=== PATIENT | male | born 1955 | race Caucasian/White ===

== ENCOUNTER 2018-09-23 14:10 | Inpatient (IN) ==
[2018-09-23] MEDS ORDERED: ASPIRIN PO ONE (14:55)
[2018-09-23 15:12] LABS: BASO# 0.01 X1000 (0.0-0.2); BASO% 0.2 % (0.0-0.8); EOS# 0.02 X1000 (0.0-0.7); EOS% 0.3 % (0.0-10.0); HEMATOCRIT 41.1 % (42.0-52.0); HEMOGLOBIN 13.6 g/dL (14.0-18.0); IMM GRAN# 0.02 X1000 (0.0-0.04); IMM GRAN% 0.3 % (0.0-0.5); LYMPH# 1.43 X1000 (1.2-3.4); LYMPH% 23.7 % (20.5-51.1); MCH 29.6 PG (27-31); MCHC 33.1 g/dL (33-37); MCV 89.5 FL (81-99); MONO# 0.51 X1000 (0.11-0.59); MONO% 8.5 % (1.7-9.3); MPV 9.3 FL (7.4-10.4); NEUT# 4.04 X1000 (1.4-6.5); PLT 318 X1000 (130-400); RBC 4.59 XMIL (4.7-6.1); RDW 13.1 % (11.5-14.5); WBC 6.03 X1000 (4.8-10.8)
--- NOTE | 2018-09-23 15:21 | Diag Imaging Result Doc PS360 ---
EXAM: CHEST-2 VIEWS HISTORY: SOB TECHNIQUE: Chest two views COMPARISON: None. FINDINGS: Poor inspiratory effort. The heart is not enlarged. The vessels are not distended. There are no infiltrates. No pleural effusions. Calcified subcarinal lymph node. IMPRESSION: No acute abnormality. Electronically signed by Dangelo Melo 09/23/2018 3:19 PM
[2018-09-23 15:27] LABS: INR 0.96; PROTIME 13.6 Seconds (11.0-16.0); PTT 29.9 Seconds (22.3-41.8)
[2018-09-23 15:32] LABS: ALBUMIN 4.4 g/dL (3.5-5.0); CALCIUM 9.8 mg/dL (8.8-10.2); CREATININE 1.4 mg/dL (0.7-1.2); POTASSIUM 4.8 mmol/L (3.5-5.1); TOTAL BILIRUBIN 0.43 mg/dL (0.20-1.00); TOTAL PROTEIN 6.6 g/dL (6.3-8.3)
--- NOTE | 2018-09-23 15:39 | EKG Report ---
Test Performed on : 09/23/2018 2:17:02 PM Test Reason : dizziness Blood Pressure : / mmHG Vent. Rate : 074 BPM Atrial Rate : 074 BPM P-R Int : 140 ms QRS Dur : 086 ms QT Int : 362 ms P-R-T Axes : 032 -06 005 degrees QTc Int : 401 ms Normal sinus rhythm. Normal ECG When compared with ECG of 10-SEP-2018 15:21, Questionable change in QRS axis Unconfirmed Result
[2018-09-23] MEDS ORDERED: SODIUM CHLORIDE 0.9% INJ SCH (21:00)
--- NOTE | 2018-09-23 21:15 | HISTORY AND PHYSICAL ---
CHIEF COMPLAINT: Dizzy spell, recurrent shortness of breath 3 times this morning while he was at work. 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 Recently had lithotripsy for kidney stones by Dr. Gaffney. Came to the ER with the above symptoms. Family history of heart disease. He has shortness of breath on exertion. No swelling of feet. Initial workup, chest x-ray, EKG, cardiac enzymes were negative. He also has near syncope spells. Basically, admitted in telemetry, rule out VA, rule out pulmonary embolism, rule out carotid disease. Currently denies any focal symptoms. PAST MEDICAL HISTORY: Reported hypertension, kidney stones, hyperlipidemia, IBS with diarrhea. PAST SURGICAL HISTORY: Reported colonoscopy by Dr. Lr, lithotripsy recently. MEDICATIONS: 1. Viberzi 75 mg daily. 2. Lisinopril 10 daily. 3. Livalo 2 mg daily. 4. Flomax 0.4 daily. ALLERGIES: Not known. SOCIAL HISTORY: for 44 years. Lives in [place]. One child. Dips tobacco. No alcohol. FAMILY HISTORY: Mom is alive with open-heart surgery. Father had heart disease with stents. REVIEW OF SYSTEMS: HEENT: No headache, no vision problem, no earache, no sore throat. Neck: No goiter. No lymphadenopathy. No bruit. Cardiopulmonary: No chest pain. Basically shortness of breath. No PND. No orthopnea. No swelling of feet. GI: No nausea, vomiting, abdominal pain, bleeding per rectum. : No history of hesitancy, frequency, dysuria. Recently had kidney stones busted by lithotripsy. Neurologic: No neurological symptoms or weakness. PHYSICAL EXAMINATION: VITAL SIGNS: Temperature is 98 degrees, pulse 69, blood pressure 140/79, 5 feet 9 inches, 188 pounds. HEENT: Atraumatic, normocephalic. Pupils equal, react to light. TMs are normal. Nose and throat within normal limits. NECK: Supple. No lymphadenopathy. No goiter. CHEST: Bilateral air entry. HEART: Sounds are regular. No murmur. ABDOMEN: Belly is soft, nontender. Good bowel sounds. RECTAL: Deferred. EXTREMITIES: No peripheral edema or cyanosis. NEUROLOGIC: No obvious neurological deficits. INVESTIGATIONS: CBC: White cell count 6, hematocrit 41, platelets 318,000. PT/INR is normal. SMA 7: Sodium 142, potassium 4.8, BUN 19, creatinine 1.4. Baseline is 1.1. LFTs and cardiac enzymes were negative. ProBNP is normal. Chest x-ray: No acute abnormality. EKG: Normal sinus, nothing acute. ASSESSMENT AND PLAN: A 63-year-old white male admitted to the hospital with a dizzy, near-syncope spell. 1. Exertional shortness of breath, recent lithotripsy. Plan is rule out myocardial infarction, rule out carotid disease, rule out pulmonary embolus. Plan is check the arterial blood gases and D-dimer. Will place in telemetry. Rule out cardiac arrhythmias. 2. Family history of heart disease. Previous cardiac workup was negative. 3. Reconcile home medicines. 4. Slight dehydration. Will give intravenous fluids 1 L and follow up on SMA 7. 5. Deep venous thrombosis and gastrointestinal prophylaxis with Lovenox and Pepcid respectively. 6. Discussed the plan of care with and patient at bedside, and Dr. Fisher is going to follow up. cc: Russell Brice MD [facility]
[2018-09-23] MEDS: NS 1,000 ML IV SCH (22:11)
[2018-09-23] MEDS: PEPCID IV SCH (22:11)
[2018-09-23] MEDS: LOVENOX SUBQ SCH (22:11)
[2018-09-24 05:29] LABS: ALLEN TEST YES; BE -0.2 mmoll (-3.0-3.0); BLOOD TYPE ARTERIAL; HCO3-(ACT) 24.6 mmoll (20.0-26.0); O2(CT) 15.1 mL/dL (15.0-23.0); PCO2(98.6) 37 mmHg (35-45); PO2(98.6) 50 mmHg (60-100); SAMPLE BLOOD; SAO2 91.7 % (95.0-100.0); THB 12.2 g/dL (11.5-17.4); pH(98.6) 7.42 (7.35-7.45)
[2018-09-24 05:31] LABS: O2HB 88.2 % (95.0-99.0)
[2018-09-24 05:32] LABS: MODALITY ROOM AIR
--- NOTE | 2018-09-24 07:26 | EKG Report ---
Test Performed on : 09/24/2018 07:08:24 AM Test Reason : cp Blood Pressure : / mmHG Vent. Rate : 048 BPM Atrial Rate : 048 BPM P-R Int : 146 ms QRS Dur : 086 ms QT Int : 430 ms P-R-T Axes : 030 -01 035 degrees QTc Int : 384 ms Sinus bradycardia. Otherwise normal ECG When compared with ECG of 23-SEP-2018 14:17, (Unconfirmed) Vent. rate has decreased BY 26 BPM T wave inversion no longer evident in Inferior leads Confirmed by Natan DAVIS, Phillip Gonzales ([id number]) on 09/24/2018 5:09:49 PM
[2018-09-24 07:51] LABS: HEMATOCRIT 37.3 % (42.0-52.0); HEMOGLOBIN 12.1 g/dL (14.0-18.0); MCH 29.7 PG (27-31); MCHC 32.4 g/dL (33-37); MCV 91.6 FL (81-99); MPV 9.2 FL (7.4-10.4); RBC 4.07 XMIL (4.7-6.1); RDW 13.1 % (11.5-14.5); WBC 4.79 X1000 (4.8-10.8)
[2018-09-24 08:31] LABS: AGAP 9; BUN 17 mg/dL (8-22); CHLORIDE 108 mmol/L (98-107); COSMO 286; CREATININE 1.2 mg/dL (0.7-1.2); ESTIMATED GFR > 60; GLUCOSE 95 mg/dL (70-104); POTASSIUM 4.2 mmol/L (3.5-5.1); SODIUM 143 mmol/L (136-145); TCO2 26 mmol/L (25-35)
[2018-09-24 08:32] LABS: CALCIUM 9.2 mg/dL (8.8-10.2); MAGNESIUM 2.1 mg/dL (1.5-2.7)
[2018-09-24] MEDS: PEPCID IV SCH (08:37)
[2018-09-24] MEDS: LIVALO PO SCH (08:37)
[2018-09-24] MEDS: PRINIVIL PO SCH (08:37)
[2018-09-24] MEDS: NS 1,000 ML IV SCH (08:38)
[2018-09-24] MEDS ORDERED: FLOMAX PO SCH (09:00)
[2018-09-24 10:43] LABS: C REACTIVE PROT QUANT 0.92 mg/L (0.00-5.00)
--- NOTE | 2018-09-24 12:31 | PROGRESS NOTE ---
DATE: 09/24/2018 Vital signs stable with temperature 98.1 degrees, heart rate 50, respirations 16, blood pressure 130/69, O2 saturation on room air of 100%. Blood gases this morning revealed a low PO2 at 50, pCO2 of 37, pH 7.42, oxyhemoglobin low at 88.2. This was done on room air. D-dimer was normal. There was history of near syncope and shortness of breath yesterday. O2 saturation in the hospital on room air has been good at 98 or above. CPK was normal. There is a family history of coronary artery disease. He had cardiac evaluation about [address] Narayan, which was unremarkable. He is on Livalo 2 mg p.o. at bedtime and aspirin. He was admitted yesterday evening by Dr. Brice. He was to have pulmonary embolus, arrhythmia, and carotid artery disease ruled out. The patient states he is a little weak this morning, but feeling a little better than yesterday. PLAN: CT pulmonary angiogram, carotid vascular study, echocardiogram, and cardiology evaluation with Dr. Narayan, with possible GXT. cc: MD Russell Worrell MD
--- NOTE | 2018-09-24 13:37 | Diag Imaging Result Doc PS360 ---
EXAM: CT ANGIOGRM PULMONARY ARTERIES 09/24/2018 HISTORY: hypoxia TECHNIQUE: This exam was performed using automated exposure control, adjustment of mA or kV according to patient size, and/or use of iterative reconstruction technique. COMMENT: 3-D MIPS were performed. There are no previous thoracic studies. There is some motion artifact. There are no definite filling defects in the pulmonary arteries. The thoracic aorta is not distended and there is no evidence of dissection. There is marked hydronephrosis on the right. This was also the case at the time the previous abdominal study of 09/10/2018. There is atelectasis present in the right lower lobe which is slightly worse on the previous study. Otherwise there is no evidence of acute pulmonary parenchymal disease. There are no pleural fluid collections. There is no evidence of significant adenopathy. IMPRESSION: No evidence of pulmonary emboli. Mild right lower lobe atelectasis. Right hydronephrosis. Electronically signed by Marcelino Hou 09/24/2018 1:34 PM
--- NOTE | 2018-09-24 17:48 | ECHO REPORT ---
ORDER DATE: 09/24/2018 INDICATION: Dyspnea, coronary heart disease. REQUESTING DOCTOR: Dr. Richard Fisher. M-MODE MEASUREMENTS: Left ventricle end diastole: 5.2. Left ventricle end systole: 2.9. Posterior wall: 0.9. Interventricular septum: 0.9. Left atrium: 4.0. Aortic diameter: 3.1. SUMMARY OF 2-DIMENSIONAL IMAGIN. Left ventricular function is normal with ejection fraction of 56%. There is no wall motion abnormality. The chamber is generous in size. 2. The aortic valve is morphologically normal. Color flow mapping unremarkable. 3. The mitral valve is normal. Color flow mapping unremarkable. 4. Pulsed wave Doppler of mitral inflow shows normal E/A ratio. 5. Tissue Doppler of septal and lateral mitral annulus averages 11 cm. 6. Pulmonary venous flow is normal. 7. There is no diastolic dysfunction. 8. The tricuspid valve shows no significant regurgitation. 9. The inferior vena cava is at the upper limits of normal. Pulmonary pressure estimated at 27 mmHg. 10.The pulmonic valve is normal. Color flow mapping unremarkable. 11.The right-sided chambers appear to be normal. 12.The left atrium appears to be normal. 13.No pericardial effusion, no mass, no thrombus. Clinical correlation recommended. cc: MD Richard Wilson MD Jagan Reddy, MD MTDD
[2018-09-25] MEDS: PEPCID IV SCH ×2 (00:58→08:20)
[2018-09-25] MEDS: LOVENOX SUBQ SCH (00:58)
[2018-09-25] MEDS: NS 1,000 ML IV SCH ×2 (00:59→11:47)
[2018-09-25 08:02] VITALS: BP 126/88
[2018-09-25] MEDS: PRINIVIL PO SCH (08:21)
[2018-09-25] MEDS: LIVALO PO SCH (08:21)
--- NOTE | 2018-09-25 08:28 | PROGRESS NOTE ---
DATE: 09/25/2018 OBJECTIVE: Vital signs stable with temperature 97.8 degrees, heart rate 50, respiration 18, blood pressure 114/66, O2 saturation on room air 97%. LABORATORY DATA: Pending including testosterone, TSH, and vitamin D levels. Echocardiogram reveals ejection fraction 56%. Otherwise unremarkable. Carotid ultrasound is pending. Cardiology consult is pending. PLAN: Ambulate and keep until this afternoon. If GXT cannot be done today, he may be discharged and the procedure done as an outpatient. cc: MD Russell Worrell MD
[2018-09-25] MEDS ORDERED: PATIENT'S OWN MED PO SCH (09:00)
--- NOTE | 2018-09-25 14:33 | CARDIOLOGY CONSULTATION ---
DATE: 09/25/2018 CONSULTATION REQUESTED BY: Dr. Brice on behalf of Dr. Fisher. REASON FOR CONSULTATION: Syncope or near syncope. HISTORY: Mr. 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 He said that on Friday, he was staring down a wall. He started working about 8 o'clock in the morning, and about 10 o'clock in the morning he started noticing episodes of feeling slightly lightheaded, diaphoresis and slight weakness. This would last for a minute or so and would go away. He had 3 episodes like that before lunch time. Then, he went and had lunch and he came back to work and then he had 1 more episode of the same, feeling woozy, lightheaded, dizzy, sweaty. At that time, he decided to seek evaluation in the emergency room. He went to the ER. I do not have any emergency room note. The patient received an electrocardiogram at about 2:17 p.m. on September 23 that shows sinus rhythm, rate 74 beats per minute. There is really no significant abnormality there. They did a pulmonary arteriogram yesterday, September 24, that shows no evidence of pulmonary emboli, mild right lower lobe atelectasis, right hydronephrosis. His D-dimer was negative. A proBNP level was normal. C-reactive was normal. Troponins have been checked twice; they are negative. Initial creatinine was 1.4; subsequent was 1.2. His chest x-ray on admission showed no acute abnormality. Since admission, he has not had any further problems. The patient had received recently a cystoscopic examination with bilateral retrograde pyelograms, right ureteroscopy, laser lithotripsy, stone basket extraction of ureteral and renal stones, and right ureteral stent placement. Since then, he was prescribed tamsulosin, Flomax 0.4 mg to help him void. He also takes lisinopril daily, and he takes ciprofloxacin and Viberzi on a regular basis. Since admission, he has not experienced any further problems. PAST MEDICAL HISTORY: Positive for recurrent kidney stones for many years. He has been diagnosed with hypertension, diagnosis of sleep apnea. He has had vertigo in the past. SURGICAL HISTORY: Just the recent episode of ureteroscopy and extraction of kidney stones. SOCIAL HISTORY: He has been to his for 42 years or so. He has 1 child. 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 He is not a smoker nor a drinker. FAMILY HISTORY: Really positive for coronary heart disease in both parents. REVIEW OF SYSTEMS: The patient has been evaluated by Dr. Narayan in the past by means of a stress test on account of suspicion that he could have coronary heart disease that was done in 2016 and the stress test and the echocardiogram did not show any abnormalities. His EKG has not really changed. No other positives. He does get flank pains from time to time. Otherwise, he really has no issues. He is still working fairly actively, although he had reported some fatigue in the past, and he has lost some weight. HOME MEDICATIONS: As I said, he was taking Flomax until the day of admission, Livalo 2 mg daily, Prinivil 10 mg daily, hydrocodone as needed, Cipro 500 twice a day and Viberzi 75 mg daily. ALLERGIES: He has no allergies. PHYSICAL EXAMINATION: Vital signs: Blood pressure 126/88, pulse is 51, temperature 97.7 degrees, respirations 10. General: He is awake, alert, oriented, in no distress. HEENT: Unremarkable. Chest: Clear to auscultation and percussion. Heart: Sounds regular and rhythmic. No gallop or murmur. Abdomen: Nontender, soft. No masses. No hepatomegaly. Extremities: Show good pulses. No peripheral edema. Neurologic: Nonfocal. Moves 4 extremities. IMPRESSION: 1. Patient presenting with episode of orthostatic dizziness and diaphoresis, short lasting, recurrent, while he was being treated with Flomax. 2. History of recurrent kidney stones with a hydronephrotic right kidney, status post ureteral stent. 3. History of hypertension. 4. Probably slight dehydration. His last kidney dysfunction on admission. 5. Family history of ischemic heart disease. RECOMMENDATIONS: At this time, I really do not find any definite indication of abnormality on the cardiovascular system. We will do a stress test simply for completion of this evaluation. However, I do not believe that his symptoms are cardiovascular in nature. I believe he was dehydrated. 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 I believe after stress test the patient can be discharged, and I have discussed the case with Dr. Gaffney, who is his urologist. He will arrange for a follow-up at his office. cc: MD Russell Wilson MD MTDD
--- NOTE | 2018-09-25 22:16 | Diag Imaging Result Document ---
PROCEDURE NAME: MYOCARDIAL PERF SCAN, STR/REST - 09/25/2018 SUMMARY: The patient was administered 13.0 mCi of technetium-99m sestamibi, after which resting cardiac images were obtained. The patient was subsequently exercised on treadmill according to a Sadiq protocol, and exercised for a total of 8 minutes, achieving a maximum workload of stage III and 10.1 METS. With exercise, the heart increased from 60 beats per minute to 142 beats per minute, representing 89% of maximal age predicted heart rate. The blood pressure increased from 151/91 to 168/85. With exercise, the patient reported some mild shortness of breath but no chest pain, that resolved with rest. At peak exercise, the patient was administered 36.9 mCi of technetium-99m sestamibi, after which gated stress cardiac images were obtained. Baseline ECG demonstrated normal sinus rhythm and was within normal limits. With exercise, there were no diagnostic ST-segment changes. SPECT images were reconstructed in the short, horizontal long, and vertical long axis. Review of these images demonstrated homogeneous uptake of radiopharmaceutical in both stress and resting images. Gated images demonstrate a calculated left ventricular ejection fraction of 77% with symmetrical wall motion/thickening. CONCLUSIONS: 1. Average aerobic capacity. Target heart rate achieved. 2. Clinically negative for chest pain. 3. Electrocardiographically negative for exercise-induced myocardial ischemia. 4. Normal exercise sestamibi images. cc: MD Lazaro Gomez MD
[2018-09-26] MEDS ORDERED: SYNTHROID PO SCH (07:00)
--- NOTE | 2018-09-26 14:01 | DISCHARGE SUMMARY ---
ADMISSION DATE: 09/23/2018 DISCHARGE DATE: 09/25/2018 FINAL DIAGNOSES: 1. Near syncopal episode with dizziness and shortness of breath. 2. Generalized weakness. 3. Hypothyroidism. 4. Initial hypoxia. 5. Hypercholesterolemia. 6. History of kidney stones with recent lithotripsy. 7. Mild volume depletion. 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 Chest x-ray showed no infiltrates or effusion. Pulmonary artery arteriogram was done revealing no emboli. Echocardiogram revealed ejection fraction 56% with no valvular abnormality. Carotid ultrasound is pending. Also GXT is pending. Cardiology consult was obtained. [employer] felt that his symptoms were not related to cardiac issues, but did a stress test today for completeness. INITIAL LABORATORY: Hemoglobin 13.6, hematocrit 41.1, white blood count 6000 with normal differential. CPKs, serial group, were normal. ProBNP was 125. Vitamin D 25 hydroxy was 35.8. TSH was 5.2. Testosterone level is pending. BUN was 17 and creatinine 1.2. Calcium was 9.2 and magnesium 2.1. C-reactive protein was 0.92. Troponin T on 2 occasions was less than 0.01. HOSPITAL COURSE: He slowly improved with decrease in shortness of breath. O2 saturation remained above 95% on room air. Blood gases were done on one occasion, and results may have indicated venous sample with PO2 of 50, pCO2 of 37, and pH 7.42. Oxyhemoglobin was 88.2. He is eating well and has had no further episodes of dizziness or significant shortness of breath. DISPOSITION: He is discharged to home on the above medications with the addition of levothyroxine 50 mcg 1 daily. FOLLOW-UP: He is return to the office in 2 weeks or as needed for follow-up. cc: MD Russell Worrell MD
--- NOTE | 2018-09-29 18:08 | Carotid Study ---
DATE: 09/23/2018 PROCEDURE: Carotid duplex imaging. REFERRING PHYSICIAN: Dr. Brice. INTERPRETING PHYSICIAN: Dr. Richard Nj. TECH: Victoria. INDICATIONS: Syncope. OBSERVED DATA RIGHT LEFT Brachial Blood Pressure Carotid Pulse Bruits: Carotid/Sub DIAGRAM OF ULTRASOUND IMAGING R L RIGHT INT EXT INT EXT LEFT Del (cm/s) Del (cm/s) Subclavian 59/0 Subclavian 55/0 CCA Proximal 86/20 CCA Proximal 70/20 CCA Distal 61/20 CCA Distal 72/22 Bulb 61/20 Bulb 56/16 ICA Proximal 78/25 ICA Proximal 69/23 ICA Mid 110/49 ICA Mid 85/32 ICA Distal 90/36 ICA Distal 94/27 ECA 90/14 ECA 110/16 Vertebral 45/19 A Vertebral 45/12 A ICA/CCA Ratio 1.3 ICA/CCA Ratio 1.3 % Stenosis 0-39% % Stenosis 0-39% FINDINGS: Only a small plaque exists in the right bulb. PHYSICIAN INTERPRETATION: Small plaque in the right bulb. No significant stenosis is present. There is antegrade vertebral flow bilaterally. cc: MD Russell Dunham MD
--- NOTE | 2018-09-30 19:42 | PROVIDER DOCUMENTATION ---
This chart was entered by Bethany Acosta Scribe, acting as scribe for Phuc Servin MD. HPI-General Adult - General Chief Complaint: Dizziness Stated Complaint: DIZZINESS Time Seen by Provider: 09/23/18 15:28 Source: patient Allergies/Adverse Reactions: Patient Allergies Allergy/AdvReac Type Severity Reaction Status Date / Time No Known Allergies Allergy Verified 09/23/18 15:54 Home Medications: Home Medication List Medication Instructions Recorded Confirmed Last Taken Type Ciprofloxacin HCl [Cipro] 500 mg PO BID 09/10/18 09/23/18 09/10/18 07:30 History Eluxadoline [Viberzi] 75 mg PO DAILY 09/10/18 09/23/18 09/09/18 12:00 History LISINOpril [Prinivil] 10 mg PO DAILY 09/10/18 09/23/18 09/10/18 06:30 History Pitavastatin [Livalo] 2 mg PO DAILY 09/10/18 09/23/18 09/09/18 21:30 History Prednisone 10 mg PO DIRECTED 09/10/18 09/23/18 09/10/18 07:30 History Hydrocodone/Acetaminophen [Ash 1 ea PO Q6H PRN PRN #12 tab 09/11/18 Unknown Rx 7.5-325 Tablet] Hyoscyamine [Levsin] 0.125 mg PO Q6H PRN PRN #12 tab 09/11/18 Unknown Rx Phenazopyridine HCl [Pyridium] 100 mg PO Q8H PRN PRN #12 tab 09/11/18 Unknown Rx Tamsulosin HCl [Flomax] 0.4 mg PO DAILY #10 cap 09/11/18 09/23/18 Unknown Rx Levothyroxine Sodium [Levoxyl] 50 mcg PO DAILY #30 tab 09/25/18 Unknown Rx - History of Present Illness -Gen Adult Nature of Presenting Problems: Patient is a 63 year old male who presents with lightheadedness and shortness of breath that started this morning while at work. Denies having pain. States he has had similar symptoms before. Location of Pain/Injury: reports: none Pain Radiation: reports: no radiation Quality of Pain: reports: none Severity: reports: mild Onset/Duration: reports: this morning Timing: reports: still present Context/Activities at Onset: reports: light activity Modifying Factors: improves with: nothing Associated Symptoms: reports: shortness of breath, other (lightheadedness) Similar Symptoms Previously?: Yes Recently seen or treated by another doctor?: No Review of Systems - Adult - REVIEW OF SYSTEMS - ADULT Constitutional: reports: no symptoms reported. denies: chills, fever, fatique Eyes: reports: no symptoms reported Ears, Nose, Mouth & Throat: reports: no symptoms reported Cardiovascular: reports: no symptoms reported Respiratory: reports: see HPI, shortness of breath. denies: cough, wheezing Gastrointestinal: reports: no symptoms reported Genitourinary: reports: no symptoms reported Musculoskeletal: reports: no symptoms reported Integumentary: reports: no symptoms reported Neurological: reports: see HPI, other (lightheadedness). denies: headache/migraines, numbness, syncope Psychiatric: reports: no symptoms reported Endocrine: reports: no symptoms reported Hematologic/Lymphatic: reports: no symptoms reported Allergic/Immunologic: reports: no symptoms reported All Other Systems: Reviewed and Negative Past History - Adult - PAST MEDICAL HISTORY-ADULT Review of Records: reports: Old Records Reviewed, Nursing Assessment Review, Medications Reviewed, Social history reviewed & non-contributory. Major Childhood Illnesses: reports: denies history Cardiovascular: reports: HTN Respiratory: reports: sleep apnea Gastrointestinal: reports: denies history Obstetrical/Gynecological: reports: denies history Genitourinary: reports: kidney stones Musculoskeletal: reports: denies history Neurological: reports: denies history Psychiatric: reports: denies history Endocrine/Immune: reports: denies history Other Conditions: reports: denies history - PRIOR SURGERIES/PROCEDURES Surgical/Procedure History: reports: reviewed, not pertinent - IMMUNIZATION STATUS Childhood Immunizations: See Nurse Assessment Flu Vaccine: See Nurse Assessment - FAMILY HISTORY Family History: reviewed, not pertinent - SOCIAL HISTORY Smoking: chew, less than 1 pack/day Provider spent 3-5 mins advising pt. on dangers of tobacco.: Discussed manners to quit use, and f/u contacts for add'l counseling. Substance Use: denies Physical Exam-General - PHYSICAL EXAM-ADULT Initial Vital Signs Reviewed: Yes - CONSTITUTIONAL General Appearance: alert, no apparent distress. negative: lethargic, slow to respond - RESPIRATORY Respiratory: chest non-tender, lungs clear, normal breath sounds. negative: crackles, rhonchi, wheezing - CARDIOVASCULAR Cardiovascular: normal peripheral pulses, regular rate, rhythm. negative: tachycardia - GASTROINTESTINAL (ABDOMEN) Abdominal Exam: normal bowel sounds, non tender, soft. negative: guarding, rebound - MUSCULOSKELETAL Extremity: non-tender, normal inspection. negative: deformity - SKIN Integumentary: normal color, normal turgor, warm/dry. negative: cyanosis, ecchymosis, erythema - NEUROLOGIC Neurologic: grossly normal. negative: aphasia, facial droop - PSYCHIATRIC Psych/Mental Status: normal mood/affect, oriented x 3. negative: anxious Progress - PLAN OF CARE/RESULTS Progress/Plan/Lab Results: Vital Signs - 8 hr 09/23/18 14:19 Temperature 97.9 F Pulse Rate 72 Respiratory Rate 18 Blood Pressure 129/81 O2 Sat by Pulse Oximetry 99 Laboratory Results - last 24 hr 09/23/18 09/23/18 09/23/18 14:26 14:26 14:26 WBC 6.03 RBC 4.59 L Hgb 13.6 L Hct 41.1 L MCV 89.5 MCH 29.6 MCHC 33.1 RDW Std Deviation 13.1 Plt Count 318 MPV 9.3 Immature Gran % (Auto) 0.3 Neut % (Auto) 67.0 Lymph % (Auto) 23.7 [place] % (Auto) 8.5 Eos % (Auto) 0.3 Baso % (Auto) 0.2 Immature Gran # (Auto) 0.02 Neut # (Auto) 4.04 Lymph # (Auto) 1.43 [place] # (Auto) 0.51 Eos # (Auto) 0.02 Baso # (Auto) 0.01 PT 13.6 INR 0.96 PTT (Actin FS) 29.9 Sodium 142 Potassium 4.8 Chloride 106 Carbon Dioxide 26 Anion Gap 10 BUN 19 Creatinine 1.4 H Estimated GFR/1.73 m2 51 BUN/Creatinine Ratio 14 Glucose 95 Calculated Osmolality 285 Calcium 9.8 Total Bilirubin 0.43 AST 18 ALT 30 Alkaline Phosphatase 70 Creatine Kinase 79 Troponin T Total Protein 6.6 Albumin 4.4 Globulin 2.2 Albumin/Globulin Ratio 2.0 09/23/18 14:26 WBC RBC Hgb Hct MCV MCH MCHC RDW Std Deviation Plt Count MPV Immature Gran % (Auto) Neut % (Auto) Lymph % (Auto) [place] % (Auto) Eos % (Auto) Baso % (Auto) Immature Gran # (Auto) Neut # (Auto) Lymph # (Auto) [place] # (Auto) Eos # (Auto) Baso # (Auto) PT INR PTT (Actin FS) Sodium Potassium Chloride Carbon Dioxide Anion Gap BUN Creatinine Estimated GFR/1.73 m2 BUN/Creatinine Ratio Glucose Calculated Osmolality Calcium Total Bilirubin AST ALT Alkaline Phosphatase Creatine Kinase Troponin T < 0.010 Total Protein Albumin Globulin Albumin/Globulin Ratio Orders Category Date Time Status Cardiac Monitoring DIRECTED Care 09/23/18 14:56 Active Oxygen Therapy- ED Nursing DIRECTED Care 09/23/18 14:56 Active Saline Loc NOW Care 09/23/18 14:56 Active CHEST-2 VIEWS [RAD] Stat Exams 09/23/18 14:56 Completed CBC WITH ELECTRONIC DIFF [HEME] Stat Lab 09/23/18 14:26 Completed CK PROFILE [SP CHEM] Stat Lab 09/23/18 14:26 Completed COMPREHENSIVE METABOLIC PANEL [CHEM] Stat Lab 09/23/18 14:26 Completed PRO B-NATRIURETIC PEPTIDE Stat Lab 09/23/18 14:26 Received PROTIME WITH INR [COAG] Stat Lab 09/23/18 14:26 Completed PTT [COAG] Stat Lab 09/23/18 14:26 Completed TROPONIN T Stat Lab 09/23/18 14:26 Completed Aspirin Med 09/23/18 14:55 Discontinued 325 mg PO NOW ONE CP/SOB/Palp >45 yrs of Age Stat Oth 09/23/18 14:55 Ordered EKG [EKG] Stat Ther 09/23/18 14:14 Ordered Result Diagrams: 09/24/18 07:20 09/24/18 07:20 - EKG 1 Time of EKG reading by physician:: 14:17 EKG Read and Signed by:: Phuc Servin EKG Interpretation (*Must complete 3 of following elements*): Normal Rate: 74 Rhythm: normal sinus rhythm [place]: normal QRS: normal CA Interval: normal ST Wave: normal Comments: normal ECG - XRAY 1 XRAY Study: Chest Impression: See EMR Report ( EXAM: CHEST-2 VIEWS HISTORY: SOB TECHNIQUE: Chest two views COMPARISON: None. FINDINGS: Poor inspiratory effort. The he art is not enlarged. The vessels are not distended. There are no infiltrates. No pleural effusions. Calcified subcarinal lymph node. IMPRESSION: No acute abnormality. Electronically signed by Dangelo Melo 09/23/2018 3:19 PM 09/23/18 1519 Interpreting Physician: Dangelo Melo MD Dictated Date/Time: 09/23/18 1518 cc: Phuc Servin MD; Richard Fisher MD) - CONSULTS/PCP/HOSPITALIST Notification #1 *Consult/PCP/Hospitalist*: Dr. Brice Time Discussed: 16:19 Reason/Comments: Dr. Servin consulted with Dr. Brice about patient. Consult Disposition: Admit Departure - Departure Date of Disposition Decision: 09/23/18 Time of Disposition Decision: 16:20 DIAGNOSIS: Shortness of breath Disposition: ADMITTED INPATIENT 09 Certified Medical Emergency: Emergent Condition: Serious - Critical Care Note This patient required my direct & personal management of CC.: No Attestation - Physician/ TOYA Attestation The physician spent face to face time with patient:: Yes Advanced Practice Provider documentation review:: Supervising physician onsite and consulted in the evaluation and care of this patient. The physician did have a face to face encounter with the patient. This chart was documented by the indicated scribe, (Bethany Acosta Scribe) and accurately reflects the services I performed and decisions made by me, Phuc Servin MD, as attested by the provider's signature.
== END 2018-09-25 17:48 | disposition home or self-care (01) | DRG 312 ==
LOC: ED 14:10 → 3N 14:11
PROVIDERS: ADMIT Internal Medicine; ATTEND Family Medicine
CPT/HCPCS: 71020; 71046; 71275; 78452; 80048; 80053; 82306; 82550; 82805; 82948; 83735; 83880; 84402; 84403; 84443; 84484; 85025; 85027; 85379; 85610; 85730; 86140; 93005; 93010; 93017; 93306; 93880; 99285; A9270; A9500; J1650; J7030; Q9967; S0028; XXXXX